=== PATIENT | female | born 2000 | race Caucasian/White ===

== ENCOUNTER 2023-11-02 22:53 | Emergency (ER) | payer BC, OTHER ==
--- NOTE | 2023-11-02 23:20 | EDPHYS ---
Physician Documentation [facility] Name: Eriberto Arriola Age: 23 yrs Sex: Female : 2000 Arrival Date: 11/02/2023 Time: 22:53 Bed 8 Private MD: ED Physician Jose Jonas HPI: 11/01 23:51 This 23 yrs old Female presents to ER via Ambulatory with complaints of Cough - up rt Blood and is 8wks preg. 23:51 Patient is a G3, P1 currently at 8 weeks gestation who presents to the ED with reported rt hemoptysis. Patient states that she has been struggling with hyperemesis gravidarum, as long been taking kelly candies for it. States that she had episode of vomiting, potato caught in her throat. She coughed following that, then subsequently noticed small amount of blood-tinged mucus. States that a small amount of blood came up in her nose but none currently. Denies other acute complaints, symptoms are moderate in severity, no other aggravating or alleviating factors. 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 - Infectious Disease History:: Denies. - Social history:: Smoking status: Patient denies any tobacco usage or history of. - Family history:: not pertinent. ROS: 23:51 Constitutional: Negative for fever, chills, and weight loss, MS/Extremity: Negative for rt injury and deformity, Skin: Negative for injury, rash, and discoloration, Neuro: Negative for headache, weakness, numbness, tingling, and seizure, 23:51 Cardiovascular: Positive for 23:51 Respiratory: Positive for cough, hemoptysis, 23:51 Abdomen/GI: Positive for nausea and vomiting, Negative for abdominal pain, Exam: 23:51 Constitutional: This is a well developed, well nourished patient who is awake, alert, rt and in no acute distress. Head/Face: Normocephalic, atraumatic. Chest/axilla: Normal chest wall appearance and motion. Nontender with no deformity. No lesions are appreciated. Cardiovascular: Regular rate and rhythm with a normal S1 and S2. No gallops, murmurs, or rubs. Normal PMI, no JVD. No pulse deficits. Respiratory: Lungs have equal breath sounds bilaterally, clear to auscultation and percussion. No rales, rhonchi or wheezes noted. No increased work of breathing, no retractions or nasal flaring. Abdomen/GI: Soft, non-tender, with normal bowel sounds. No distension or tympany. No guarding or rebound. No evidence of tenderness throughout. Skin: Warm, dry with normal turgor. Normal color with no rashes, no lesions, and no evidence of cellulitis. MS/ Extremity: Pulses equal, no cyanosis. Neurovascular intact. Full, normal range of motion. Neuro: Awake and alert, GCS 15, oriented to person, place, time, and situation. Cranial nerves II-XII grossly intact. Motor strength 5/5 in all extremities. Sensory grossly intact. Cerebellar exam normal. Normal gait. 23:51 ENT: No blood in the nasopharynx, mild posterior pharyngeal erythema without exudates tonsil hypertrophy. Vital Signs: 23:01 BP 121 / 79; Pulse 105; Resp 18; Temp 98.2; Pulse Ox 100% ; Weight 93.44 kg; Height 5 as6 ft. 5 in. ; Pain 0/10; 23:01 Body Mass Index 34.28 (93.44 kg, 165.1 cm) as6 23:01 Pain Scale: Adult as6 MDM: 23:07 Patient medically screened. rt 23:51 Differential Diagnosis: Other Cough, hyperemesis gravidarum. Data reviewed: vital rt signs, nurses notes. Independent interpretation of the following test(s) in the Emergency Department. Test considered but Not performed: X-ray: No wheezing, coughing, respiratory distress in the ED, suspect that the blood was from oropharyngeal irritation. I did offer patient x-ray, however, after discussion with patient, will forego radiation exposure at this time. Patient to return if she develops any difficulty breathing.. Counseling: I had a detailed discussion with the patient and/or guardian regarding the historical points, exam findings, and any diagnostic results supporting the discharge/admit diagnosis, the need for outpatient follow up, to return to the emergency department if symptoms worsen or persist or if there are any questions or concerns that arise at home. Administered Medications: No medications were administered Disposition Summary: 11/02/23 23:20 Discharge Ordered Notes: Location: Home rt Problem: new rt Symptoms: have improved rt Condition: Stable rt Diagnosis - Hyperemesis gravidarum rt Followup: rt - With: Private Physician - When: 2 - 3 days - Reason: Discharge Instructions: - Discharge Summary Sheet rt - Hyperemesis Gravidarum rt Forms: - Medication Reconciliation Form rt - Antibiotic Education rt - Prescription Opioid Use rt - Patient Portal Instructions rt - Leadership Thank You Letter rt Signatures: Ruben Rodriguez RN RN as6 Jose Jonas MD MD rt Corrections: (The following items were deleted from the chart) 23:02 23:02 Allergies: No Known Allergies; as6 as6
--- NOTE | 2023-11-02 23:20 | ER ---
Nurse's Notes [facility] Name: Eriberto Arriola Age: 23 yrs Sex: Female : 2000 Arrival Date: 11/02/2023 Time: 22:53 Bed 8 Private MD: Diagnosis: Hyperemesis gravidarum Presentation: 11/01 23:02 Chief complaint: Patient states: pt has been having bad morning sickness and this as6 evening after she vomited she started to cough and there was blood in her sputum. Coronavirus screen: At this time, the client does not indicate any symptoms associated with coronavirus-19. Ebola Screen: No symptoms or risks identified at this time. Initial Sepsis Screen: Does the patient meet any 2 criteria? No. Patient's initial sepsis screen is negative. Does the patient have a suspected source of infection? No. Patient's initial sepsis screen is negative. Risk Assessment: Do you want to hurt yourself or someone else? Patient reports no desire to harm self or others. Onset of symptoms was November 02, 2023. 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 - Infectious Disease History:: Denies. - Social history:: Smoking status: Patient denies any tobacco usage or history of. - Family history:: not pertinent. Screenin:27 [facility] ED Fall Risk Assessment (Adult) History of falling in the last 3 months, kd3 including since admission No falls in past 3 months (0 pts) Confusion or Disorientation No (0 pts) Intoxicated or Sedated No (0 pts) Impaired Gait No (0 pts) Mobility Assist Device Used No (0 pt) Altered Elimination No (0 pt) Score/Fall Risk Level 0 - 2 = Low Risk Oriented to surroundings. Abuse screen: Denies threats or abuse. Denies injuries from another. Nutritional screening: No deficits noted. Tuberculosis screening: No symptoms or risk factors identified. Assessment: 23:27 General: Appears in no apparent distress. Behavior is calm, cooperative. Pain: kd3 Complains of pain in neck. Neuro: Level of Consciousness is awake, alert, obeys commands, Oriented to person, place, time, situation. Cardiovascular: Patient's skin is warm and dry. Respiratory: Airway is patent Trachea midline Respiratory effort is even, unlabored, Respiratory pattern is regular, symmetrical. Vital Signs: 23:01 BP 121 / 79; Pulse 105; Resp 18; Temp 98.2; Pulse Ox 100% ; Weight 93.44 kg; Height 5 as6 ft. 5 in. ; Pain 0/10; 23:01 Body Mass Index 34.28 (93.44 kg, 165.1 cm) as6 23:01 Pain Scale: Adult as6 ED Course: 22:57 Patient arrived in ED. ra3 23:01 Arm band placed on right wrist. as6 23:03 Triage completed. as6 23:04 Matilde Kim RN is Primary Nurse. kd3 23:06 Jose Jonas MD is Attending Physician. rt 23:28 Patient has correct armband on for positive identification. Provided Education on: kd3 instructions . 23:28 No provider procedures requiring assistance completed. Patient did not have IV access kd3 during this emergency room visit. Administered Medications: No medications were administered Medication: 23:28 VIS not applicable for this client. kd3 Outcome: 23:20 Discharge ordered by . rt 23:28 Discharged to home ambulatory, kd3 23:28 Condition: stable 23:28 Discharge instructions given to patient, family, Instructed on discharge instructions, follow up and referral plans. Demonstrated understanding of instructions, 23:28 Patient left the ED. kd3 Signatures: Ruben Rodriguez RN RN as6 Matilde Kim RN RN kd3 Jose Jonas MD MD rt Rhea Soares ra3 Corrections: (The following items were deleted from the chart) 23:02 23:02 Allergies: No Known Allergies; as6 as6
[2023-11-03 00:48] VITALS: BP 121/79; TEMP 98.2; O2SAT 100
== END 2023-11-02 23:28 | disposition home or self-care (01) ==
LOC: ER 22:53
DX: O21.0 Mild hyperemesis gravidarum (principal); Z3A.08 8 weeks gestation of pregnancy; Z88.0 Allergy status to penicillin
CPT/HCPCS: 99282

== ENCOUNTER 2024-03-13 23:34 | Emergency (ER) | payer BC ==
--- NOTE | 2024-03-13 23:59 | EDPHYS ---
Physician Documentation [facility] Name: Eriberto Arriola Age: 24 yrs Sex: Female : 2000 Arrival Date: 03/13/2024 Time: 23:34 Bed 1 Private MD: HERNÁN Physician HPI: 03/13 23:55 This 24 yrs old Female presents to ER via Unassigned with complaints of sp4 Abdominal Pain, EST 27 WKS GESTATION, PT STATES THAT IS HER GALLBLADDER CAUSING ISSUES AND SHE DOES NOT HAVE OB CONCERNS.. MDM: 23:56 Medical Screening Exam initiated sp4 Administered Medications: 03/14 00:38 Not Given (Patient Eloped): ns 0.9% 1000 ml IV at 1 bolus Per protocol; to be given as bm8 a bolus over 60 minutes Disposition Summary: 03/13/24 23:59 Eloped Notes: Disposition: before being seen by provider vc1 Reason: to labor and delivery vc1 Signatures: Dispatcher [employer] EDMS Missy Carson RN RN vc1 Justin Dorado MD MD sp4 Ronald Martinez RN bm8
--- NOTE | 2024-03-13 23:59 | ER ---
Nurse's Notes [facility] Name: Eriberto Arriola Age: 24 yrs Sex: Female : 2000 Arrival Date: 03/13/2024 Time: 23:34 Bed 1 Private MD: Diagnosis: Assessment: 03/13 23:45 Reassessment: pt brought back to room and was advised on plan of care of lab work, bm8 ultrasound and urine test. when told that she would most likely be transferred due to 27 weeks gestation period with no care thus far she stated that she would rather just drive to where she wanted to go on her own, with significant other. This nurse attempted to convince pt not to leave so that at least something could be relayed to transferring hospital, but pt and significant other persisted in leaving to assure they could get the desired hospital. ED Course: 23:37 Patient arrived in ED. jj6 23:54 Justin Dorado MD is Attending Physician. sp4 23:58 Ronald Martinez, RN is Primary Nurse. bm8 Administered Medications: 03/14 00:38 Not Given (Patient Eloped): ns 0.9% 1000 ml IV at 1 bolus Per protocol; to be given as bm8 a bolus over 60 minutes Outcome: 03/13 23:59 Patient left the ED. vc1 03/14 00:24 Eloped from patient exam room, before seeing physician bm8 Condition: stable Discharge instructions given to patient, family, Demonstrated understanding of follow-up care, pt eloped Signatures: Shanthi Cobos jj6 Missy Carson RN RN vc1 Justin Dorado MD MD sp4 Ronald Martinez, RN RN bm8 Corrections: (The following items were deleted from the chart) 00:38 00:24 Reassessment: pt brought back to room and was advised on plan of care, when told bm8 that she would be transferred she stated that she would rather just drive to where she wanted on her own with significant other. bm8
== END 2024-03-13 23:59 | disposition left against medical advice (07) ==
LOC: ER 23:34
DX: Z02.9 Encounter for administrative examinations, unspecified (principal)

== ENCOUNTER 2024-05-09 12:19 | Emergency (ER) | payer BC ==
[2024-05-09] MEDS ORDERED: ONDANSETRON 4 MG/2 ML VIAL ONE (12:31)
[2024-05-09] MEDS ORDERED: NA CHLORIDE 0.9% 1,000 ML ONE ×2 (12:32→13:46)
[2024-05-09] MEDS ORDERED: Magnesium Sulfate 2gm IVPB 2 G/50 ML BAG IV ONE (12:42)
[2024-05-09 13:29] LABS: Albumin 2.6 g/dL (3.4-5.0); Albumin/Globulin Ratio 0.6 (1.1-1.8); Anion Gap 12.7 mEq/L (5.0-15.0); Bilirubin Total 1.3 mg/dL (0.2-1.0); Globulin 4.6 g/dL (2.3-3.5); Potassium 3.7 mEq/L (3.5-5.1); Protein, Total 7.2 g/dL (6.4-8.2); Troponin High Sensitivity 3.2 pg/mL (<58.9)
[2024-05-09 13:34] LABS: Absolute Basophils 0.1 K/uL (0-0.5); Absolute Lymphocytes (CBC) 2.7 K/uL (0.7-4.9); Absolute Monocytes 0.7 K/uL (0.1-1.3); Absolute Neutrophil 8.8 K/uL (1.8-8.0); Basophils % 0.9 % (0-1.3); Eosinophils % 0.3 % (0-4.4); Hematocrit 43.8 % (36.0-45.0); Hemoglobin 14.2 g/dL (12.0-15.0); Lymphocytes % 22.1 % (15.3-44.8); MCHC 32.3 g/dL (32.0-36.0); MCV 86.7 fL (80-100); MPV 8.4 fL (7.6-11.3); Monocytes % 5.7 % (3.3-12.3); Nucleated Red Blood Cells % 0.1 % (0-0); Platelets 236 thou/uL (152-406); RBC Red Blood Cell Count 5.05 M/uL (3.86-4.86); Red Cell Distribution Width 14.4 % (12.1-15.2)
--- NOTE | 2024-05-09 13:38 | RAD REPORT ---
EXAM:OB Limited . CLINICAL HISTORY: with abdominal pain. ABD PAIN TECHNIQUE: Limited OB ultrasound performed. FINDINGS: Single live intrauterine fetus is present. Estimated age of the fetus is 36 weeks 3 days. heart rate is normal at 157. HANK is 21 cm, within normal limits. Placenta is anterior without acute finding. There is unusual appearance to the cardiac atrium, incompletely assessed on four-chamb er view of the heart due to near full-term gestational age. Incidental note is made of a distended gallbladder containing a stone in the neck. Correlation with c linical Reese's sign suggested.
--- NOTE | 2024-05-09 13:42 | ER ---
Nurse's Notes [facility] Name: Eriberto Arriola Age: 24 yrs Sex: Female : 2000 Arrival Date: 05/09/2024 Time: 12:19 Bed 1 Private MD: Diagnosis: Cholecystitis, hypertension, term ;Cholecystitis, hypotension, term Presentation: 05/09 12:23 Chief complaint: Patient states: feel like her BP is low, she is feeling weak and iw seeing spots, she had a similar episode last week and was admitted to [facility] overnight , , 36 weeks . 12:23 Method Of Arrival: Wheelchair iw 12:23 Acuity: VEL 2 iw 12:26 Ebola Screen: No symptoms or risks identified at this time. Initial Sepsis Screen: Does iw the patient meet any 2 criteria? No. Patient's initial sepsis screen is negative. Does the patient have a suspected source of infection? No. Patient's initial sepsis screen is negative. Risk Assessment: Do you want to hurt yourself or someone else? Patient reports no desire to harm self or others. Onset of symptoms was May 09, 2024. 12:27 Coronavirus screen: At this time, the client does not indicate any symptoms associated iw with coronavirus-19. RODEO CLOWN: 14:38 Verified ko1 Historical: - Allergies: 12:26 PENICILLINS; iw - Home Meds: 12:26 None [Active]; iw - PMHx: 12:26 None; iw - PSHx: 12:26 None; iw - Immunization history:: Adult Immunizations unknown. - Infectious Disease History:: Denies. - Social history:: Smoking status: . Screenin:36 [facility] ED Fall Risk Assessment (Adult) History of falling in the last 3 months, ko1 including since admission No falls in past 3 months (0 pts) Confusion or Disorientation No (0 pts) Intoxicated or Sedated No (0 pts) Impaired Gait No (0 pts) Mobility Assist Device Used No (0 pt) Altered Elimination No (0 pt) Score/Fall Risk Level 0 - 2 = Low Risk Oriented to surroundings, Maintained a safe environment, Educated pt \T\ family on fall prevention, incl call for assistance when getting out of bed, Assessed \T\ reinforced patient's understanding of fall precautions, Hourly rounding (assess needs \T\ fall precautionary measures) done. Abuse screen: Denies threats or abuse. Denies injuries from another. Nutritional screening: No deficits noted. Tuberculosis screening: No symptoms or risk factors identified. Assessment: 12:36 General: Appears distressed, Behavior is anxious. Pain: Denies pain. Neuro: No deficits ko1 noted. Cardiovascular: Reports lightheadedness. Respiratory: No deficits noted. GI: Reports nausea, vomiting. : No deficits noted. No signs and/or symptoms were reported regarding the genitourinary system. EENT: No deficits noted. No signs and/or symptoms were reported regarding the EENT system. Derm: No deficits noted. No signs and/or symptoms reported regarding the dermatologic system. Musculoskeletal: No deficits noted. No signs and/or symptoms reported regarding the musculoskeletal system. 12:51 Reassessment: BP readings are low now, fluids infusing to right wrist. iw 13:16 Reassessment: iv fluids placed on pressurized bag. rs5 Vital Signs: 12:23 BP 137 / 115; Pulse 60; Resp 19; Pulse Ox 99% on R/A; iw 12:50 BP 71 / 51; Pulse 56; Resp 22; Pulse Ox 97% on R/A; iw 12:59 BP 87 / 46; Pulse 50; Resp 24; Pulse Ox 100% on R/A; ko1 13:15 BP 79 / 55; Pulse 54; Resp 17; Pulse Ox 99% ; rs5 13:30 BP 94 / 58; Pulse 53; Resp 18; Pulse Ox 98% on R/A; rs5 13:52 BP 99 / 61; Pulse 54; Resp 17; Pulse Ox 98% ; rs5 14:09 Temp 98.3; Weight 102.06 kg; rs5 14:29 BP 90 / 53; Pulse 50; Resp 15; Pulse Ox 99% ; ko1 15:00 BP 108 / 73; Pulse 64; Resp 15; Pulse Ox 100% on R/A; ko1 ED Course: 12:20 Patient arrived in ED. sj2 12:21 Alexis Perez MD is Attending Physician. rn 12:26 Attending Physician role handed off by Alexis Perez MD sp3 12:26 Alma Delia Torres MD is Attending Physician. sp3 12:26 Triage completed. iw 12:27 Mague Bradford, RN is Primary Nurse. ko1 12:28 Arm band placed on. iw 12:36 Patient has correct armband on for positive identification. Allergy band placed. Bed in ko1 low position. Call light in reach. Side rails up X2. Adult w/ patient. Provided Education on: labs, meds. Client placed on continuous cardiac and pulse oximetry monitoring. NIBP monitoring applied. electrical appliance repairer on. Door closed. Noise minimized. Lights dimmed. Warm blanket given. Pillow given. 12:50 Troponin High Sensitivity Sent. em1 12:50 Initial lab(s) drawn, by me, sent to lab. Inserted saline lock: 22 gauge in right em1 forearm, using aseptic technique. Blood collected. Flushed with 10 mL NS. 13:01 Comprehensive Metabolic Panel Sent. ko1 13:27 US OB Limited: 36 wks In Process Unspecified. EDMS 13:42 initiated a transfer with Maria Ines from the [facility] transfer center. eb 13:48 Inserted saline lock: 20 gauge in left antecubital area, using aseptic technique. em1 Flushed with 10 mL NS. 14:[address] Guicho Vega the OBGYN avionics repair technician for [facility] Kimberly with Dr. Torres for eb patient transfer consultation. 14:13 administrative approval given by Maria Ines Santos/ patient has been accepted to [facility] L\T\D triage/ Dr. Jackson Pringle has accepted the patient in transfer/ report to be called to [phone]. 14:37 No provider procedures requiring assistance completed. Patient transferred, IV remains ko1 in place. Administered Medications: 12:50 Drug: NS 0.9% IV 1000 ml IV at 1000 ml once; to be given as a bolus over 60 minutes iw Route: IV; Rate: 1000 ml; Site: right hand; 13:59 Follow up: Response: No adverse reaction; IV Status: Completed infusion; IV Intake: ko1 1000ml 12:55 Drug: Magnesium Sulfate IVPB 2 grams IVPB once over 2 hrs Route: IVPB; Infused Over: 2 ko1 hrs; Site: right forearm; 14:00 Follow up: Response: No adverse reaction; IV Status: Completed infusion; IV Intake: ko1 100ml 13:01 Drug: Ondansetron IVP 4 mg IVP once; over 2 minutes Route: IVP; Site: right forearm; ko1 13:16 Follow up: Response: No adverse reaction ko1 13:50 Drug: Cefepime IVPB 1 grams IVPB at 200 ml/hr once over 30 mins; (mix in NS 100 mL) ko1 Route: IVPB; Rate: 200 ml/hr; Infused Over: 30 mins; Site: right forearm; 14:15 Follow up: Response: No adverse reaction; IV Status: Completed infusion; IV Intake: ko1 100ml 13:50 Drug: NS 0.9% IV 1000 ml IV at 1000 ml once; to be given as a bolus over 60 minutes ko1 Route: IV; Rate: 1000 ml; Site: right forearm; 14:39 Follow up: Response: No adverse reaction; IV Status: Infusion continued upon transfer ko1 13:59 Drug: Promethazine IVP 12.5 mg IVP once Route: IVP; Site: right forearm; ko1 14:14 Follow up: Response: No adverse reaction ko1 14:10 Drug: morphine IVP or IV 4 mg IVP once over 4 mins Route: IVP; Infused Over: 4 mins; ko1 Site: right forearm; 14:25 Follow up: Response: No adverse reaction ko1 Medication: 12:36 VIS not applicable for this client. ko1 Intake: 13:59 IV: 1000ml; Total: 1000ml. ko1 14:00 IV: 100ml; Total: 1100ml. ko1 14:15 IV: 100ml; Total: 1200ml. ko1 Outcome: 13:42 ER care complete, transfer ordered by . sp3 15:01 Transferred by ground EMS [facility]. to other acute care facility: [place]. Transfer form ko1 completed. X-rays sent w/ patient. 15:01 Condition: stable 15:01 Instructed on the need for transfer, 15:01 Patient left the ED. ko1 Signatures: Dispatcher [employer] EDMS Ana Newell RN RN iw Alexis Perez MD MD rn Martinez, Eric em1 Hue Costello Setul, MD MD sp3 Mague Bradford RN RN ko1 Nish Huddleston RN RN rs5 Kelly Barry 2 Corrections: (The following items were deleted from the chart) 12:28 12:23 Pulse 60bpm; Resp 19bpm; Pulse Ox 99% RA; iw iw 12:55 12:50 COMPREHENSIVE METABOLIC PANEL+C.LAB.BRZ drawn and sent. em1 EDMS 14:10 14:09 102.06 kg; rs5 rs5 15: 14:37 Transferred by ground EMS [facility]. to other acute care facility: [place]. Transfer ko1 form completed. X-rays sent w/ patient. ko1 : 14:37 Condition: stable ko1 ko1 15: 14:37 Instructed on the need for transfer, ko1 ko1
--- NOTE | 2024-05-09 13:43 | EDPHYS ---
Physician Documentation [facility] Name: Eriberto Arriola Age: 24 yrs Sex: Female : 2000 Arrival Date: 05/09/2024 Time: 12:19 Bed 1 Private MD: ED Physician Alma Delia Torres HPI: 05/09 12:31 This 24 yrs old Female presents to ER via Wheelchair with complaints of Blood Pressure sp3 Problem, Near Syncope, PREG. 12:31 24-year-old female G3, at 36 weeks with primary obstetrics at [facility] now sp3 presents to the ED with chief complaint near syncope, vomiting and abdominal cramping. states that this is occurred earlier earlier in the where she had hypotension. Patient also states she has mild chest pain. She denies headache, neck pain, shortness of breath, back pain, symptoms, vaginal bleeding or discharge, syncope, rash, or any other signs or symptoms on ROS at this time. states that they were try to get [place] but came here because he "did not want her to pass out" en route.. COMPLIANCE COUNSEL: 14:38 Verified ko1 Historical: - Allergies: 12:26 PENICILLINS; iw - Home Meds: 12:26 None [Active]; iw - PMHx: 12:26 None; iw - PSHx: 12:26 None; iw - Immunization history:: Adult Immunizations unknown. - Infectious Disease History:: Denies. - Social history:: Smoking status: . ROS: 12:33 Constitutional: Negative for fever, chills, and weight loss, Eyes: Negative for injury, sp3 pain, redness, and discharge, Neck: Negative for injury, pain, and swelling, Cardiovascular: Negative for chest pain, palpitations, and edema, Respiratory: Negative for shortness of breath, cough, wheezing, and pleuritic chest pain, Back: Negative for injury and pain, MS/Extremity: Negative for injury and deformity, Skin: Negative for injury, rash, and discoloration, Neuro: Negative for headache, weakness, numbness, tingling, and seizure, Psych: Negative for depression, anxiety, suicide ideation, homicidal ideation, and hallucinations, Allergy/Immunology: Negative for hives, rash, and allergies, Endocrine: Negative for neck swelling, polydipsia, polyuria, polyphagia, and marked weight changes, Exam: 12:35 Constitutional: This is a well developed, well nourished patient who is awake, alert, sp3 and in no acute distress. Head/Face: Normocephalic, atraumatic. Eyes: Pupils equal round and reactive to light, extra-ocular motions intact. Lids and lashes normal. Conjunctiva and sclera are non-icteric and not injected. Cornea within normal limits. Periorbital areas with no swelling, redness, or edema. Neck: Trachea midline, no thyromegaly or masses palpated, and no cervical lymphadenopathy. Supple, full range of motion without nuchal rigidity, or vertebral point tenderness. No Meningismus. Chest/axilla: Normal chest wall appearance and motion. Nontender with no deformity. No lesions are appreciated. Cardiovascular: Regular rate and rhythm with a normal S1 and S2. No gallops, murmurs, or rubs. Normal PMI, no JVD. No pulse deficits. Respiratory: Lungs have equal breath sounds bilaterally, clear to auscultation and percussion. No rales, rhonchi or wheezes noted. No increased work of breathing, no retractions or nasal flaring. Back: No spinal tenderness. No costovertebral tenderness. Full range of motion. Skin: Warm, dry with normal turgor. Normal color with no rashes, no lesions, and no evidence of cellulitis. MS/ Extremity: Pulses equal, no cyanosis. Neurovascular intact. Full, normal range of motion. Neuro: Awake and alert, GCS 15, oriented to person, place, time, and situation. Cranial nerves II-XII grossly intact. Motor strength 5/5 in all extremities. Sensory grossly intact. Cerebellar exam normal. Normal gait. Psych: Awake, alert, with orientation to person, place and time. Behavior, mood, and affect are within normal limits. 12:35 Abdomen/GI: Gravid uterus consistent with dates. Mild pain to palpation diffusely without peritoneal signs., 14:43 ECG was reviewed by the Attending Physician. EKG demonstrates sinus bradycardia 51 bpm sp3 with right bundle branch block and nonspecific diffuse ST/T changes without evidence of acute ischemia. Vital Signs: 12:23 BP 137 / 115; Pulse 60; Resp 19; Pulse Ox 99% on R/A; iw 12:50 BP 71 / 51; Pulse 56; Resp 22; Pulse Ox 97% on R/A; iw 12:59 BP 87 / 46; Pulse 50; Resp 24; Pulse Ox 100% on R/A; ko1 13:15 BP 79 / 55; Pulse 54; Resp 17; Pulse Ox 99% ; rs5 13:30 BP 94 / 58; Pulse 53; Resp 18; Pulse Ox 98% on R/A; rs5 13:52 BP 99 / 61; Pulse 54; Resp 17; Pulse Ox 98% ; rs5 14:09 Temp 98.3; Weight 102.06 kg; rs5 14:29 BP 90 / 53; Pulse 50; Resp 15; Pulse Ox 99% ; ko1 15:00 BP 108 / 73; Pulse 64; Resp 15; Pulse Ox 100% on R/A; ko1 MDM: 12:21 Medical Screening Exam initiated rn 12:36 Data reviewed: vital signs, nurses notes, lab test result(s), EKG, radiologic studies. sp3 ED course: 24-year-old female G3, at 36 weeks with near syncope and abdominal cramping. Blood pressure 137/115. Patient will be placed in left lateral decubitus position and rechecked. Magnesium will be given prophylactically. Ultrasound and labs pending as well as EKG. Disposition probable transfer to [facility] or other appropriate facility for further monitoring once stabilized here. Ondansetron IV and normal saline also given.. 13:39 ED course: Ultrasound demonstrates SL IUP at 36 weeks with HANK 21. Patient also has a sp3 sonographic Reese sign with distended gallbladder with stone in the neck which correlates clinically. Elevated LFTs and total bili noted as well. Antibiotics given and second liter normal saline being administered. Blood pressure still in the neighborhood of 80/60. Patient will be transferred to [facility] system for further intervention as needed.. 13:54 ED course: BP improved to 99/61. 2 IVs going both with normal saline. Transfer sp3 initiated waiting on callback. Morphine as needed for pain control. Antibiotics being infused.. 05/09 12:27 Order name: CBC with Diff; Complete Time: 13:39 sp3 05/09 12:37 Order name: Troponin High Sensitivity; Complete Time: 13:33 sp3 05/09 12:55 Order name: Comprehensive Metabolic Panel; Complete Time: 13:33 EDMS 05/09 12:27 Order name: US OB Limited: 36 wks ; Complete Time: 13:39 sp3 05/09 12:37 Order name: EKG; Complete Time: 12:38 sp3 05/09 12:27 Order name: IV Saline Lock; Complete Time: 12:50 sp3 05/09 12:27 Order name: Labs collected and sent; Complete Time: 13:01 sp3 05/09 12:27 Order name: NPO; Complete Time: 12:28 sp3 05/09 12:37 Order name: EKG - Nurse/Tech; Complete Time: 12:59 sp3 05/09 12:37 Order name: Recheck Vital Signs; Complete Time: 12:45 sp3 Administered Medications: 12:50 Drug: NS 0.9% IV 1000 ml IV at 1000 ml once; to be given as a bolus over 60 minutes iw Route: IV; Rate: 1000 ml; Site: right hand; 13:59 Follow up: Response: No adverse reaction; IV Status: Completed infusion; IV Intake: ko1 1000ml 12:55 Drug: Magnesium Sulfate IVPB 2 grams IVPB once over 2 hrs Route: IVPB; Infused Over: 2 ko1 hrs; Site: right forearm; 14:00 Follow up: Response: No adverse reaction; IV Status: Completed infusion; IV Intake: ko1 100ml 13:01 Drug: Ondansetron IVP 4 mg IVP once; over 2 minutes Route: IVP; Site: right forearm; ko1 13:16 Follow up: Response: No adverse reaction ko1 13:50 Drug: Cefepime IVPB 1 grams IVPB at 200 ml/hr once over 30 mins; (mix in NS 100 mL) ko1 Route: IVPB; Rate: 200 ml/hr; Infused Over: 30 mins; Site: right forearm; 14:15 Follow up: Response: No adverse reaction; IV Status: Completed infusion; IV Intake: ko1 100ml 13:50 Drug: NS 0.9% IV 1000 ml IV at 1000 ml once; to be given as a bolus over 60 minutes ko1 Route: IV; Rate: 1000 ml; Site: right forearm; 14:39 Follow up: Response: No adverse reaction; IV Status: Infusion continued upon transfer ko1 13:59 Drug: Promethazine IVP 12.5 mg IVP once Route: IVP; Site: right forearm; ko1 14:14 Follow up: Response: No adverse reaction ko1 14:10 Drug: morphine IVP or IV 4 mg IVP once over 4 mins Route: IVP; Infused Over: 4 mins; ko1 Site: right forearm; 14:25 Follow up: Response: No adverse reaction ko1 Disposition Summary: 05/09/24 13:42 Transfer Ordered Notes: Transfer Location: [facility]-System sp3 Reason: Higher level of care sp3 Condition: Stable sp3 Problem: new sp3 Symptoms: have worsened sp3 Accepting Physician: TBD obstetrics with surgical consult(05/09/24 15:01) ko1 Diagnosis - Cholecystitis, hypertension, term sp3 - Cholecystitis, hypotension, term sp3 Forms: - Medication Reconciliation Form sp3 - SBAR form sp3 Critical care time excluding procedures: 13:40 Critical care time: Bedside Care: 15 minutes, Consultation: 10 minutes, Family sp3 Intervention: 10 minutes. Total time: 35 minutes Signatures: Dispatcher [employer] EDAna Olson RN RN iw Nieto, Roman, MD MD rn Patel, Setul, MD MD sp3 Mague Bradford RN RN ko1 Corrections: (The following items were deleted from the chart) 12:27 12:27 CBC+H.LAB.BRZ ordered. EDMS EDMS 12:27 12:27 Test, Urine+UC.LAB.BRZ ordered. EDMS EDMS 12:27 12:27 Urinalysis+U.LAB.BRZ ordered. EDMS EDMS 12:27 12:27 OB Limited+US.RAD.BRZ ordered. EDMS EDMS 12:55 12:27 COMPREHENSIVE METABOLIC PANEL+C.LAB.BRZ ordered. EDMS EDMS 13:46 13:42 TBD obstetrics with surgical consult sp3 sp3 15:01 13:46 TBD obstetrics with surgical consult sp3 ko1
[2024-05-09] MEDS ORDERED: NA CHLORIDE 0.9% 100 ML ONE (13:46)
[2024-05-09] MEDS ORDERED: CEFEPIME 1 GM/VIAL ONE (13:47)
[2024-05-09] MEDS ORDERED: MORPHINE 4 MG/ML SYR ONE (13:57)
[2024-05-09] MEDS ORDERED: PROMETHAZINE INJ 25 MG/ML AMP ONE (13:57)
[2024-05-09 15:21] VITALS: TEMP 98.3
[2024-05-09 15:23] VITALS: BP 108/73; O2SAT 100
--- NOTE | 2024-05-14 11:00 | EKG ---
Test Date: 2024-05-09 Test Time: 12:53:19 Maintenance Helper Utility Engineer: JOCELYNE MEASUREMENT RESULTS: Intervals: Rate: 51 VA: 126 QRSD: 110 QT: 424 QTc: 390 [place]: P: 61 VA: 126 QRS: 39 T: 67 INTERPRETIVE STATEMENTS: Sinus bradycardia with sinus arrhythmia Incomplete right bundle branch block Borderline ECG No previous ECG available for comparison Electronically Signed On 05-14-24 10:53:50 [employer]RIX SUPERVISOR by Toni Muñoz
== END 2024-05-09 15:01 | disposition short-term general hospital (02) ==
LOC: ER 12:19
DX: O99.613 Diseases of the digestive system complicating pregnancy, third trimester (principal); K81.9 Cholecystitis, unspecified; O16.3 Unspecified maternal hypertension, third trimester; O26.53 Maternal hypotension syndrome, third trimester; Z3A.36 36 weeks gestation of pregnancy
CPT/HCPCS: 96365; 93005; 85025; 36415; 84484; 80053; 76815; 96375; 99285; J2550; J3475; J2405; J7030 ×2; J0692

== ENCOUNTER 2024-05-15 11:11 | Emergency (ER) | payer BC ==
--- NOTE | 2024-05-15 14:07 | ER ---
Nurse's Notes [facility] Name: Eriberto Arriola Age: 24 yrs Sex: Female : 2000 Arrival Date: 05/15/2024 Time: 11:11 Bed IW1 Private MD: Diagnosis: Abdominal pain, unspecified;Vomiting Presentation: 05/15 11:46 Chief complaint: Patient states: Abdominal cramping, nausea, vomiting and diarrhea cm10 onset today. Pt reports that the pain is to her upper abdomen. Pt has history of gall stones. Pt 5 days - vaginal delivery. Coronavirus screen: Client denies travel out of the [place] in the last 14 days. Ebola Screen: Patient denies travel to an Ebola-affected area in the 21 days before illness onset. Initial Sepsis Screen: Does the patient meet any 2 criteria? HR > 90 bpm. Does the patient have a suspected source of infection? No. Patient's initial sepsis screen is negative. Risk Assessment: Do you want to hurt yourself or someone else? Patient reports no desire to harm self or others. Onset of symptoms was May 15, 2024. 11:46 Method Of Arrival: Ambulatory cm10 11:46 Acuity: VEL 3 cm10 Triage Assessment: 11:48 General: Appears in no apparent distress. uncomfortable, Behavior is calm, cooperative. cm10 Pain: Complains of pain in right upper quadrant and left upper quadrant Pain does not radiate. Pain currently is 4 out of 10 on a pain scale. Quality of pain is described as crampy. Neuro: No deficits noted. Level of Consciousness is awake, alert, obeys commands, Oriented to person, place, time, situation, Appropriate for age. Respiratory: No deficits noted. Airway is patent Respiratory effort is even, unlabored, Respiratory pattern is regular, symmetrical. GI: Reports upper abdominal pain, cramping, diarrhea, nausea, vomiting. Historical: - Allergies: 11:47 PENICILLINS; cm10 - PMHx: 11:47 Gallstone; cm10 - Immunization history:: Adult Immunizations. - Infectious Disease History:: Denies. - Social history:: Smoking status: Patient denies any tobacco usage or history of. - Family history:: not pertinent. Vital Signs: 11:46 BP 133 / 81; Pulse 126; Resp 17; Temp 97.9(O); Pulse Ox 100% on R/A; Weight 102.06 kg; cm10 Height 5 ft. 4 in. ; Pain 4/10; 11:46 Body Mass Index 38.62 (102.06 kg, 162.56 cm) cm10 11:46 Pain Scale: Adult cm10 ED Course: 11:17 Patient arrived in ED. sj2 11:21 Jose Jonas MD is Attending Physician. rt 11:47 Triage completed. cm10 11:48 Arm band placed on right wrist. Patient placed in waiting room, on a stretcher. cm10 13:02 Patient's name was called from ER lobby. No response. ld1 Administered Medications: No medications were administered Outcome: 14:06 Discharge ordered by . rt 14:08 Patient left the ED. hb Signatures: Shauna Cortez, RN RN hb Georgie Ramires RN RN ld1 Jose Jonas MD MD rt Rosi Oseguera RN RN cm10 Kelly Barry sj2
--- NOTE | 2024-05-15 14:07 | EDPHYS ---
Physician Documentation [facility] Name: Eriberto Arriola Age: 24 yrs Sex: Female : 2000 Arrival Date: 05/15/2024 Time: 11:11 Bed IW1 Private MD: ED Physician Jose Jonas HPI: 05/15 15:02 This 24 yrs old Female presents to ER via Ambulatory with complaints of Abdominal rt Cramping, Vomiting/Diarrhea. 15:02 Patient who is about 5 days presents to the ED with nausea, vomiting, rt diarrhea, upper abdominal pain for the past day. States that this feels different than the previous gallbladder issues that she has had. Reports no complications associated with the delivery, reports normal amount of bleeding, denies foul lochia. Denies other acute complaints at this time, symptoms are moderate severity, no other aggravating alleviating factors.. Historical: - Allergies: 11:47 PENICILLINS; cm10 - PMHx: 11:47 Gallstone; cm10 - Immunization history:: Adult Immunizations. - Infectious Disease History:: Denies. - Social history:: Smoking status: Patient denies any tobacco usage or history of. - Family history:: not pertinent. ROS: 15:02 Constitutional: Negative for fever, chills, and weight loss, Cardiovascular: Negative rt for chest pain, palpitations, and edema, Respiratory: Negative for shortness of breath, cough, wheezing, and pleuritic chest pain, MS/Extremity: Negative for injury and deformity, Skin: Negative for injury, rash, and discoloration, Neuro: Negative for headache, weakness, numbness, tingling, and seizure, 15:02 Abdomen/GI: Positive for abdominal pain, nausea, vomiting, and diarrhea, Exam: 15:02 Constitutional: This is a well developed, well nourished patient who is awake, alert, rt and in no acute distress. Head/Face: Normocephalic, atraumatic. Chest/axilla: Normal chest wall appearance and motion. Nontender with no deformity. No lesions are appreciated. Cardiovascular: Regular rate and rhythm with a normal S1 and S2. No gallops, murmurs, or rubs. Normal PMI, no JVD. No pulse deficits. Respiratory: Lungs have equal breath sounds bilaterally, clear to auscultation and percussion. No rales, rhonchi or wheezes noted. No increased work of breathing, no retractions or nasal flaring. Skin: Warm, dry with normal turgor. Normal color with no rashes, no lesions, and no evidence of cellulitis. MS/ Extremity: Pulses equal, no cyanosis. Neurovascular intact. Full, normal range of motion. 15:02 Abdomen/GI: Mild tenderness to the epigastrium, no focal right upper quadrant tenderness, no rebound, guarding, distention, Vital Signs: 11:46 BP 133 / 81; Pulse 126; Resp 17; Temp 97.9(O); Pulse Ox 100% on R/A; Weight 102.06 kg; cm10 Height 5 ft. 4 in. ; Pain 4/10; 11:46 Body Mass Index 38.62 (102.06 kg, 162.56 cm) cm10 11:46 Pain Scale: Adult cm10 MDM: 11:49 Medical Screening Exam initiated rt 15:02 Differential diagnosis: Cholecystitis, cholelithiasis, gastroenteritis, gastritis. Data rt reviewed: vital signs, nurses notes. ED course: Before patient's evaluation was completed, she left from the waiting room without informing staff.. Administered Medications: No medications were administered Disposition Summary: 05/15/24 14:06 Discharge Ordered Notes: Location: Home rt Condition: Undetermined rt Diagnosis - Abdominal pain, unspecified rt - Vomiting rt Followup: rt - With: Private Physician - When: 2 - 3 days - Reason: Forms: - Medication Reconciliation Form rt - Antibiotic Education rt - Prescription Opioid Use rt - Patient Portal Instructions rt - Leadership Thank You Letter rt Signatures: Dispatcher [employer] EDTX Jose Jonas MD MD rt Rosi Oseguera RN RN cm10 Corrections: (The following items were deleted from the chart) 11:49 11:49 CBC+H.LAB.BRZ ordered. EDMS EDMS 11:49 11:49 COMPREHENSIVE METABOLIC PANEL+C.LAB.BRZ ordered. EDMS EDMS 11:49 11:49 LIPASE+C.LAB.BRZ ordered. EDMS EDMS 13:42 13:42 LIPASE+C.LAB.BRZ ordered. EDMS EDMS 13:42 13:42 COMPREHENSIVE METABOLIC PANEL+C.LAB.BRZ ordered. EDMS EDMS 13:42 13:42 CBC+H.LAB.BRZ ordered. EDMS EDMS
[2024-05-18 01:23] VITALS: BP 133/81; TEMP 97.9; O2SAT 100
== END 2024-05-15 14:08 | disposition home or self-care (01) ==
LOC: ER 11:11
DX: R10.13 Epigastric pain (principal); R11.10 Vomiting, unspecified
CPT/HCPCS: 99281